=== PATIENT | male | born 1930 | race Caucasian/White ===

== ENCOUNTER → 2016-11-30 | Outpatient (REF) | payer MEDICARE ==
[~2016-11-30] MED LIST: ALBU17IN INH; ALLO15TA PO; AMLO2.5T PO; AMLO5TAB2 PO; ATEN50TA2 PO; BISO10TA PO; CALC1CAP31 PO; CAPT62TA PO; CARV6.25 PO; CEFT500T3 PO; CENTTAB PO; CITA10TA5 PO; CLOP75TA2 PO; FURO1TAB15 PO; FURO40TA2 PO; GLIM4TAB PO; GLIP-163 PO; LEVO137T2 PO; LOSA100T36 PO; NYST10PW TOP; OXYB10TA PO; OXYB15TA PO; PRAV1TAB39 PO; PRAV20TA2 PO; PRED20TA PO; ROCA0.25 PO; SYMB16INH INH; TAMS0.4C2 PO; TIOT18INH INH; TYLE325T5 PO; TYLE650T30 PO; VITMTA PO; ZYLO300T4 PO
[2016-11-30 14:20] LABS: ALBUMIN 3.6 GM/DL (3.2-5.2); ALBUMIN/GLOBULIN RATIO 1.2 (1.00-1.93); BILIRUBIN,TOTAL 0.8 MG/DL (0.2-1.0); CALCIUM LEVEL 8.9 MG/DL (8.8-10.2); CREATININE FOR GFR 2.38 MG/DL (0.70-1.30); GLOMERULAR FILTRATION RATE 27.7 (>35); MAGNESIUM LEVEL 2.2 MG/DL (1.8-2.4); POTASSIUM SERUM 4.1 MEQ/L (3.5-5.1); TOTAL PROTEIN 6.6 GM/DL (6.4-8.2)
[2016-11-30 14:31] LABS: MEAN CORPUSCULAR HEMOGLOBIN 29.7 pg (27.0-33.0); MEAN CORPUSCULAR HGB CONC 31.9 g/dl (32.0-36.5); MEAN CORPUSCULAR VOLUME 93.2 fl (80.0-96.0); RED CELL DISTRIBUTION WIDTH 15.3 % (11.5-14.5); WHITE BLOOD COUNT 9.2 K/mm3 (4.0-10.0)
== END ==
LOC: M SFHCPLAZ 10:45
PROVIDERS: ATTEND Internal Medicine
DX: R06.09 Other forms of dyspnea (principal); N18.4 Chronic kidney disease, stage 4 (severe); E03.9 Hypothyroidism, unspecified; Z85.51 Personal history of malignant neoplasm of bladder; E11.22 Type 2 diabetes mellitus with diabetic chronic kidney disease

== ENCOUNTER 2017-02-09 09:20 | Emergency (ER) | payer MEDICARE ==
[~2017-02-09] VITALS: Ht 175.3 cm; Wt 102.1 kg
[2017-02-09] MEDS ORDERED: CARV6.25 PO (09:48)
[2017-02-09] MEDS ORDERED: SPIR25TA2 PO (09:48)
[2017-02-09] MEDS ORDERED: ANOR1AER IN (09:48)
[2017-02-09] MEDS ORDERED: LASI80TA PO (09:48)
[2017-02-09] MEDS ORDERED: ASPI81TA85 PO (09:48)
[2017-02-09] MEDS ORDERED: GLIM4TAB PO (09:48)
[2017-02-09] MEDS ORDERED: XOPEAER INH (09:48)
[2017-02-09] MEDS ORDERED: ELIQ2.5T PO (09:48)
[2017-02-09 10:42] LABS: BASO % 0.3 % (0.0-1.0); EOS # 0.1 K/mm3 (0.0-0.50); EOS % 1.4 % (0.0-3.0); LARGE UNSTAINED CELL # 0.1 K/mm3 (0.0-0.4); LARGE UNSTAINED CELL % 1.5 % (0.0-4.0); LYMPH % 8.8 % (24.0-44.0); MEAN CORPUSCULAR HEMOGLOBIN 30.9 pg (27.0-33.0); MEAN CORPUSCULAR VOLUME 93.6 fl (80.0-96.0); MONO # 0.6 K/mm3 (0.0-0.8); MONO % 6.8 % (0.0-5.0); NEUTROPHILS # 7.7 K/mm3 (1.8-7.7); NEUTROPHILS % 81.2 % (36.0-66.0); PLATELET COUNT, AUTOMATED 189 k/mm3 (150-450); RED CELL DISTRIBUTION WIDTH 13.9 % (11.5-14.5); WHITE BLOOD COUNT 9.5 K/mm3 (4.0-10.0)
[2017-02-09 10:58] LABS: ALBUMIN 2.6 GM/DL (3.2-5.2); ALBUMIN/GLOBULIN RATIO 0.62 (1.00-1.93); BILIRUBIN,DIRECT 0.1 MG/DL (0.0-0.2); BILIRUBIN,TOTAL 0.4 MG/DL (0.2-1.0); CALCIUM LEVEL 8.7 MG/DL (8.8-10.2); CREATININE FOR GFR 2.38 MG/DL (0.70-1.30); GLOMERULAR FILTRATION RATE 27.7 (>35); POTASSIUM SERUM 3.4 MEQ/L (3.5-5.1); TOTAL PROTEIN 6.8 GM/DL (6.4-8.2)
--- NOTE | 2017-02-09 11:20 | REP ---
Portable chest, single AP view, patient sitting: Comparison 05/04/2016. There is chronic cardiomegaly, unchanged. There is a dual-chamber pacemaker, unchanged. There appears to be a EXECUTIVE DIRECTOR [employer] SHOP shunt tubing superimposed over the right hemithorax, unchanged. There is an incomplete inspiratory effort. There are no focal infiltrates. No pleural effusions. Lung noe otherwise clear. 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 Impression: No definite acute cardiopulmonary findings. Chronic cardiomegaly and pacemaker are again noted. There is an incomplete inspiratory effort. EXECUTIVE DIRECTOR [employer] SHOP shunt tubing is again incidentally noted. Signed by Cesar Long MD 02/09/2017 11:12 A
--- NOTE | 2017-02-09 12:25 | REP ---
CT of the brain without IV contrast: Comparison is 04/29/2016. There is no hemorrhage. There is no edema, mass effect or midline shift. The ventricles and sulci are enlarged compatible with diffuse volume loss. This is unchanged. There is a sulcal artifact in the left parietal lobe on image 18, unchanged from the comparison study. The lateral ventricles appear enlarged but unchanged. MOLD TOOLING TECHNICIAN shunt tubing enters from a jalen hole in the posterior right frontal area with the tip extending into the anterior horn of the right lateral ventricle near the falx, unchanged. The cortical stripe is unremarkable. The visualized paranasal sinuses and mastoid air cells are clear. Impression: There is no hemorrhage, acute infarct or mass. There is diffuse volume loss. The lateral ventricles appear dilated but unchanged from the prior study. MOLD TOOLING TECHNICIAN shunt tubing is again noted, unchanged. Signed by Cesar Long MD 02/09/2017 12:16 P
[2017-02-09 15:08] VITALS: BP 122/67
--- NOTE | 2017-02-09 16:45 | ECGEPIP ---
Stationary ECG Study [facility] - ED Test Date: 2017-02-09 Pat Name: RAPHAEL KRAMER Department: Room: - Gender: M Senior Solutions Engineer: pedro : [id number] Requested By: LUCILLE Martinez Order Number: [id number] Reading MD: Kimberlee Sparks Measurements Intervals [place] Rate: 71 P: NV: 0 QRS: 103 QRSD: 178 T: -71 QT: 466 QTc: 506 Interpretive Statements ELECTRONIC VENTRICULAR PACEMAKER ABNORMAL RHYTHM ECG Electronically Signed On 02-09-2017 16:45:48 EDT by Kimberlee Sparks
== END 2017-02-09 17:42 | disposition home or self-care (01) ==
LOC: M ED 11:10
DX: R41.82 Altered mental status, unspecified (principal); I25.10 Atherosclerotic heart disease of native coronary artery without angina pectoris; I25.2 Old myocardial infarction; J44.9 Chronic obstructive pulmonary disease, unspecified; E11.9 Type 2 diabetes mellitus without complications; Z95.5 Presence of coronary angioplasty implant and graft; Z95.0 Presence of cardiac pacemaker; Z86.73 Personal history of transient ischemic attack (TIA), and cerebral infarction without residual deficits; Z85.51 Personal history of malignant neoplasm of bladder; Z87.891 Personal history of nicotine dependence; I65.29 Occlusion and stenosis of unspecified carotid artery

== ENCOUNTER → 2017-04-23 | Outpatient (CLI) | payer MEDICARE ==
[~2017-04-23] MED LIST changes: +ANOR1AER IN; +ASPI81TA85 PO; +ELIQ2.5T PO; +LASI80TA PO; +SPIR25TA2 PO; +XOPEAER INH
--- NOTE | 2017-04-23 15:43 | REP ---
HISTORY: Carotid arterial disease. Heavy echogenic material is seen in the carotid arteries along the carotid wall bilaterally, some of which casts an acoustic shadow consistent with calcific deposition. RIGHT LEFT CCA systolic 31.2 cm/s 68.2 cm/s CCA diastolic 6.4 cm/s 19.3 cm/s ICA systolic 13.4 cm/s 319.9 cm/s ICA diastolic 0.5 cm/s 152.8 cm/s ICA/CCA ratio 0.4 4.7 Analysis of the spectral waveform show significant left internal carotid arterial spectral broadening with complete filling of the spectral window. Antegrade flow is seen only in the left vertebral artery. The right vertebral artery was not visualized. 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 Signed by Félix Santana DO 04/23/2017 04:24 P
== END ==
LOC: M RAD 11:58
PROVIDERS: ATTEND Surgery Vascular Surgery
DX: I65.23 Occlusion and stenosis of bilateral carotid arteries (principal)

== ENCOUNTER → 2017-06-11 | Outpatient (CLI) | payer MEDICARE ==
[~2017-06-11] MED LIST changes: -FURO1TAB15 PO; +FURO80TA2 PO; +LEVAINH INH; -XOPEAER INH
[2017-06-11 18:49] LABS: ALBUMIN 3.2 GM/DL (3.2-5.2); BILIRUBIN,TOTAL 0.6 MG/DL (0.2-1.0); CALCIUM LEVEL 9.1 MG/DL (8.8-10.2); CREATININE FOR GFR 2.31 MG/DL (0.70-1.30); GLOMERULAR FILTRATION RATE 28.6 (>35); MAGNESIUM LEVEL 2.2 MG/DL (1.8-2.4); POTASSIUM SERUM 4.1 MEQ/L (3.5-5.1); TOTAL PROTEIN 6.4 GM/DL (6.4-8.2)
== END ==
LOC: M WUC 14:58
PROVIDERS: ATTEND Internal Medicine
DX: I13.0 Hypertensive heart and chronic kidney disease with heart failure and stage 1 through stage 4 chronic kidney disease, or unspecified chronic kidney disease (principal); I50.32 Chronic diastolic (congestive) heart failure; E11.22 Type 2 diabetes mellitus with diabetic chronic kidney disease; E78.00 Pure hypercholesterolemia, unspecified; N18.4 Chronic kidney disease, stage 4 (severe); E03.9 Hypothyroidism, unspecified

== ENCOUNTER → 2017-09-15 | Outpatient (REF) | payer MEDICARE ==
[2017-09-15 15:53] LABS: MEAN CORPUSCULAR HEMOGLOBIN 30.8 pg (27.0-33.0); MEAN CORPUSCULAR HGB CONC 32.5 g/dl (32.0-36.5); MEAN CORPUSCULAR VOLUME 94.5 fl (80.0-96.0); PLATELET COUNT, AUTOMATED 234 10^3/uL (150-450); RED CELL DISTRIBUTION WIDTH 15.1 % (11.5-14.5); WHITE BLOOD COUNT 7.5 10^3/uL (4.0-10.0)
[2017-09-15 16:13] LABS: ALBUMIN 3.5 GM/DL (3.2-5.2); ALBUMIN/GLOBULIN RATIO 1.13 (1.00-1.93); BILIRUBIN,TOTAL 0.5 MG/DL (0.2-1.0); CALCIUM LEVEL 9.3 MG/DL (8.8-10.2); CREATININE FOR GFR 2.28 MG/DL (0.70-1.30); GLOMERULAR FILTRATION RATE 29.1 (>35); MAGNESIUM LEVEL 2.2 MG/DL (1.8-2.4); TOTAL PROTEIN 6.6 GM/DL (6.4-8.2)
== END ==
LOC: M SFHCPLAZ 12:20
PROVIDERS: ATTEND Internal Medicine
DX: R41.0 Disorientation, unspecified (principal); E03.9 Hypothyroidism, unspecified

== ENCOUNTER 2018-03-10 15:50 | Emergency (ER) | payer MEDICARE ==
[2018-03-10 16:40] LABS: BASO # 0.1 10^3/uL (0.0-0.2); BASO % 0.6 % (0.0-1.0); EOS # 0.3 10^3/uL (0.0-0.50); EOS % 3.5 % (0.0-3.0); HEMOGLOBIN 12.7 g/dl (13.5-17.5); IMMATURE GRANULOCYTE % 0.5 % (0-3.0); LYMPH # 1.4 10^3/uL (1.5-4.5); MEAN CORPUSCULAR HEMOGLOBIN 30.5 pg (27.0-33.0); MEAN CORPUSCULAR HGB CONC 32.6 g/dl (32.0-36.5); MEAN CORPUSCULAR VOLUME 93.8 fl (80.0-96.0); MONO # 0.7 10^3/uL (0.0-0.8); MONO % 7.5 % (0.0-5.0); NEUTROPHILS # 6.2 10^3/uL (1.8-7.7); NEUTROPHILS % 71.9 % (36.0-66.0); PLATELET COUNT, AUTOMATED 236 10^3/uL (150-450); RED BLOOD COUNT 4.16 10^6/uL (4.30-6.10); RED CELL DISTRIBUTION WIDTH 14.9 % (11.5-14.5); WHITE BLOOD COUNT 8.6 10^3/uL (4.0-10.0)
[2018-03-10 16:50] LABS: INR 1.16
[2018-03-10 16:59] LABS: ANION GAP 6 MEQ/L (8-16); BLOOD UREA NITROGEN 48 MG/DL (7-18); CALCIUM LEVEL 9.1 MG/DL (8.8-10.2); CARBON DIOXIDE LEVEL 29 MEQ/L (21-32); CHLORIDE LEVEL 106 MEQ/L (98-107); CREATININE FOR GFR 2.38 MG/DL (0.70-1.30); GLOMERULAR FILTRATION RATE 27.6 (>35); GLUCOSE, FASTING 153 MG/DL (70-100); POTASSIUM SERUM 3.8 MEQ/L (3.5-5.1); SODIUM LEVEL 141 MEQ/L (136-145)
== END 2018-03-10 19:33 | disposition home or self-care (01) ==
LOC: M ED 15:50
DX: R31.9 Hematuria, unspecified (principal); Z86.73 Personal history of transient ischemic attack (TIA), and cerebral infarction without residual deficits; Z91.041 Radiographic dye allergy status; Z88.0 Allergy status to penicillin; Z79.01 Long term (current) use of anticoagulants; Z79.890 Hormone replacement therapy; Z79.899 Other long term (current) drug therapy; Z98.890 Other specified postprocedural states
CPT/HCPCS: 74176

== ENCOUNTER → 2018-03-30 | Outpatient (REF) | payer MEDICARE ==
[2018-03-31 08:42] LABS: APPEARANCE, URINE TURBID (CLEAR); BACTERIA, URINE AUTO 3+ (NEGATIVE); BILIRUBIN, URINE AUTO NEGATIVE (NEGATIVE); BLOOD, URINE BLOOD 1+ (NEGATIVE); COLOR, URINE YELLOW (YELLOW); GLUCOSE, URINE (UA) AUTO NEGATIVE (NEGATIVE); KETONE, URINE AUTO NEGATIVE (NEGATIVE); LEUKOCYTE ESTERASE, URINE AUTO 3+ (NEGATIVE); MUCUS, URINE SMALL (NEGATIVE); NITRITE, URINE AUTO NEGATIVE (NEGATIVE); PROTEIN, URINE AUTO NEGATIVE (NEGATIVE); RBC, URINE AUTO 11 /HPF (0-3); SPECIFIC GRAVITY URINE AUTO 1.009 (1.002-1.035); SQUAMOUS EPITHELIAL CELL UR AU 1 /HPF (0-6); UROBILINOGEN, URINE AUTO 0.2 mg/dL (0.0-2.0); WBC, URINE AUTO TNTC /HPF (0-3)
== END ==
LOC: M SMT 08:02
DX: R31.0 Gross hematuria (principal)
CPT/HCPCS: 81001

== ENCOUNTER → 2018-05-23 | Outpatient (CLI) | payer MEDICARE | LOC: M RAD 09:33 | DX: I62.03 Nontraumatic chronic subdural hemorrhage (principal); Z98.2 Presence of cerebrospinal fluid drainage device | CPT/HCPCS: 70450 ==

== ENCOUNTER → 2018-05-24 | Outpatient (REF) ==
[2018-05-24 15:53] LABS: BASO % 0.5 % (0.0-1.0); EOS # 0.2 10^3/uL (0.0-0.50); EOS % 3.3 % (0.0-3.0); HEMATOCRIT 32.2 % (42.0-52.0); HEMOGLOBIN 10.3 g/dl (13.5-17.5); IMMATURE GRANULOCYTE % 0.3 % (0-3.0); LYMPH # 1.2 10^3/uL (1.5-4.5); LYMPH % 18.3 % (24.0-44.0); MEAN CORPUSCULAR HEMOGLOBIN 30.6 pg (27.0-33.0); MEAN CORPUSCULAR VOLUME 95.5 fl (80.0-96.0); MONO # 0.7 10^3/uL (0.0-0.8); MONO % 10.4 % (0.0-5.0); NEUTROPHILS # 4.4 10^3/uL (1.8-7.7); NEUTROPHILS % 67.2 % (36.0-66.0); PLATELET COUNT, AUTOMATED 213 10^3/uL (150-450); RED BLOOD COUNT 3.37 10^6/uL (4.30-6.10); RED CELL DISTRIBUTION WIDTH 14.6 % (11.5-14.5); WHITE BLOOD COUNT 6.5 10^3/uL (4.0-10.0)
[2018-05-24 16:07] LABS: ANION GAP 5 MEQ/L (8-16); BLOOD UREA NITROGEN 43 MG/DL (7-18); CALCIUM LEVEL 8.4 MG/DL (8.8-10.2); CARBON DIOXIDE LEVEL 29 MEQ/L (21-32); CHLORIDE LEVEL 110 MEQ/L (98-107); CREATININE FOR GFR 2.06 MG/DL (0.70-1.30); GLOMERULAR FILTRATION RATE 32.6 (>35); GLUCOSE, FASTING 164 MG/DL (70-100); POTASSIUM SERUM 4.5 MEQ/L (3.5-5.1); SODIUM LEVEL 144 MEQ/L (136-145)
== END ==
LOC: SKLAB5 14:46
DX: D64.9 Anemia, unspecified (principal)